=== PATIENT | female | born 1955 ===

== ENCOUNTER → 2022-03-06 08:24 | Outpatient (REF) | payer MEDICARE, SELFPAY ==
--- NOTE | 2022-03-06 08:31 | CA_ITS ---
Transthoracic Echocardiogram Patient (Last, First, Middle): Elli Putnam A Gender: Female Date of : 1955 Age: 66 Procedure Date: 03/06/2022 Procedure Type: Transthoracic Echocardiogram Location: OP Height: 152.4 cm Weight: 56.25 kg BSA: 1.52 m2 Heart Rate: bpm BP: 170 / 86 mmHg Prosthodontist/Owner: LEANNA Referring MD: Angel Harp MD Research Methodologist: Cecil Centeno MD Symptoms: CEREBRAL INFARCTION Study Quality: Adequate Conclusions: - 1. Normal LV systolic function with impaired relaxation filling pattern next 2. Mildly dilated left atrium 3. Fibrocalcific aortic valve changes noted and mild mitral calcification with mild mitral regurgitation 4. Normal RV systolic pressure 5. No pericardial effusion Findings Left Ventricle Normal left ventricular size, thickness, and systolic function. The visually estimated ejection fraction is between 60-65%. Spectral Doppler is indicative of an impaired relaxation filling pattern. E/E prime ratio is between 8 and 15 consistent with indeterminate filling pressures. Right Ventricle Normal right ventricular cavity size and systolic function. Atria The left atrium is mildly dilated. 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 Interatrial shunt cannot be excluded. The right atrium is normal in size. Aortic Valve There is mild calcification of the aortic valve. There is no aortic valve stenosis. There is no aortic valve regurgitation. Mitral Valve There is mild anterior and posterior mitral leaflet thickening. There is mild mitral annular calcification. There is mild mitral valve regurgitation. There is no mitral valve stenosis. Pulmonic Valve The pulmonic valve was not well visualized. Tricuspid Valve Likely normal tricuspid valve structure and function. There is mild tricuspid valve regurgitation. The right ventricular systolic pressure is normal. The right ventricular systolic pressure is 34 mmHg. Normal right atrial pressure. There is no evidence of pulmonary hypertension. Great Vessels All visible segments of the aorta are normal in size. The pulmonary artery was not well visualized. Small plaque is seen in the sino tubular ridge. Venous The inferior vena cava is normal in size and collapses greater than 50% with inspiration. Pericardium/Pleural There is no evidence of pericardial effusion. Prior Study Comparison No prior study available for comparison. Measurements 2D Linear Measurements IVSd: 1.11 0.6-0.9/0.6-1.0 cm LVIDd: 5.12 3.9-5.3/4.2-5.9 cm LVIDd Index: 3.37 2.4-3.2/2.2-3.1 cm/m2 LVIDs: 4.27 2.0-3.6 cm LVPWd: 1.09 0.7-1.1 cm LA Diam: 3.10 2.7-3.8/3.0-4.0 cm LAIDs Index: 2.04 1.5-2.3 cm/m2 LV Mass: 268.33 67-162/88-224 g LV Mass Index: 176.53 43-95/49-115 g/m2 LVOT Diam: 2.00 3.0+(-)1.3 cm 2D Systolic Function EF 4C: 55.50 >55% EF 2C: 63.60 >55% EF BiP: 60.10 >55% Mitral Valve MV Pk E: 0.88 MV PK A: 1.38 MV Decel Time: 335.00 E/A: 0.60 E'Lateral: 4.68 E'Medial: 4.13 E/E' Med: 21.20 E/E' Lat: 18.70 PHT: 98.00 MVA PHT: 2.24 Decel [place]: 2.62 Aortic Valve AoV Pk Chris: 1.48 AoV Mn Chris: 0.98 AoV VTI: 0.35 AoV Pk Grad: 9.00 Aov Mn Grad: 5.00 ITZ Cont.VTI: 2.08 LVOT LVOT Pk Chris: 0.93 LVOT Mn Chris: 0.59 LVOT VTI: 0.23 LVOT Pk Grad: 3.00 LVOT Mn Grad: 2.00 LVOT Diam: 2.00 LVOT Area: 3.14 Diastolic Function MV Pk E: 0.88 MV Pk A: 1.38 E/A: 0.60 E'Medial: 4.13 E/E' Med: 21.20 E' Laterial: 4.68 E/E' Lat: 18.70 Right Ventricle TAPSE (mm): 19.50 TVS' Chris: 10.20 Tricuspid Valve TR Pk Chris: 2.55 TR Pk Grad: 26.00 RA Press: 8.00 RVSP: 34.00 Great Vessels Aorta Sinus of Valsalva: 3.02 2.0-3.[address] [place]: 2.88 1.7-3.4 cm Ao Asc: 3.10 2.1-3.4 cm Updated in Other Vendor System with Status of Final Cecil Centeno MD electronically signed on 03/06/2022 2:44:32 PM with status of Final
--- NOTE | 2022-03-06 08:32 | HM_ITS ---
Conclusion: 1. Patient was monitored for total period of 6 days and 23 hours 2. Baseline was normal sinus rhythm with average heart of 63 beats per minute 3. No significant pauses or bradycardia noted 4. Total of 687 PVCs accounting for 0.11% of total beats account for occasional PVCs 5. No patient reported events MTDD
== END ==
LOC: HO.CARD 08:24
PROVIDERS: Visit Provider Psychiatry & Neurology Neurology
DX: I63.9 Cerebral infarction, unspecified (principal)
CPT/HCPCS: 93242; 93306